=== PATIENT | female | born 1955 | race Caucasian/White ===

== ENCOUNTER → 2016-09-11 | Day surgery (SDC) | payer OTHER ==
[~2016-09-11] VITALS: Ht 162.6 cm; Wt 90.7 kg
[~2016-09-11] MED LIST: ASPIRIN EC81 M1 PO; METOPROLOL TART50 M1 PO; MULTAQ400 M1 PO
--- NOTE | 2016-09-11 16:10 | Operative Report ---
Operative/Inv Procedure Report Surgery Date: 09/11/16 Name of Procedure: cystoscopY: botox 300units bladder injection Pre-Operative Diagnosis: overactive bladder refractory to anti-cholinergics: failed interstim. Post-Operative Diagnosis: same Estimated Blood Loss: scant Surgeon/Aircraft Quality Control Inspector: AIME AMEZQUITA MD Anesthesia: moderate sedation Specimens: interstim lead and generator. Complications: none Operative/Procedure Note Note: The patient was taken to the operating room and placed on the OR table in prone position. The patient was gently flexed, with supporting pillows and eggcrate's so that the patient was comfortable. With the patient awake, timeout was performed in order to confirm identity, procedure, laterality, antibiotics, anesthesia, and other pertinent perioperative information. After adequate anesthesia and antibiotics, the patient was draped and prepped in the usual surgical fashion from the posterior mid thigh, entire buttocks, and mid spine. The InterStim generator, and lead wire were easily palpable. Local anesthesia using 2% lidocaine, and quadrant percent Marcaine in a 50:50 mixture was used to infiltrate the entire area of the generator, and lead wire. A total of 20 mL of local anesthesia was utilized. Using a 15 blade knife, an incision was made using the scar tissue made with the insertion of the InterStim. Using blunt and sharp dissection, the incision was deepened until I was able to reach the pocket of the InterStim generator. The InterStim generator was easily manipulated with in this cavity. A second incision was made above the insertion site of the lead wire. Using blunt and sharp dissection, including a small Metzenbaum, the lead wire was identified and easily grasped with a Oneida clamp. Using the Oneida clamp to generate gentle traction on the wire, the entire wire with plastic prongs were removed intact. The wire, from the generator was gently extracted underneath the subcutaneous tunnel in order to remove the entire generator, and wire, without difficulty. The InterStim pockets, subcutaneous tunnel, and insertion site of the lead wire was copiously irrigated with vancomycin solution. Hemostasis was clearly achieved using gentle Bovie cauterization. 4-0 Monocryl subcuticular stitch was used to close the skin over the wire insertion site, as well as Dermabond. This site was covered with Telfa and small Tegaderm. The generator pocket was again copiously irrigated, and hemostasis was achieved using Bovie cautery. The subcutaneous fat was reapproximated using 2-0 Vicryl interrupted sutures, and the skin was closed using 4-0 Monocryl subcuticular stitch. The area was cleaned, then Dermabond was applied on the incision in order to seal the wound. Telfa and medium sized Tegaderm was then applied in order to form a sterile bandage. All sponge needle and instrument count were correct at the end of the case. The patient tolerated this procedure well. The patient was then repositioned in [facility] sturrups. After adequate anesthesia, the patient was then placed lithotomy stirrups, draped and prepped in the usual surgical fashion. The 22 uzbek cystoscope with the 30 degree angle lens was inserted into the bladder without difficulty. Uretral mucosa was noted to be coapting well. The bladder appears normal without tumor/stone. Bilateral clear efflux was also noted. The cystoscope was removed after draining the bladder. Subsequently, the Botox Injection Resectoscope with 30 angle lens was inserted without difficulty. Under direct visualization, the 18-gauge cystoscopic needle was extended. Using a spiral injection patern, avoiding the trigone and area around the ureteral orifices, a total of 300 units of Botox, in small 10unit aliquots was injected into the bladder muscle/detrusor (including the dome, posterior, right and left pina of the bladder) forming a submucosal blister with each injection of botox. The bladder was then drained and the Botox cystoscope was removed without difficulty. The patient tolerated the procedure well, and was then taken to recovery room in satisfactory condition. She was discharged home with pain medication and antibiotics, and to follow up in 2 weeks' time. Discharge Disposition: Same Day Admissions CC: BIA ELIZABETH,AIME
== END ==
LOC: STS 01:57
DX: N32.81 Overactive bladder (principal); T85.898A Other specified complication of other internal prosthetic devices, implants and grafts, initial encounter; I10 Essential (primary) hypertension; I48.91 Unspecified atrial fibrillation; Z79.82 Long term (current) use of aspirin
CPT/HCPCS: J0131; J0585; J1580; J2250; J3370